=== PATIENT | male | born 1980 | race Caucasian/White ===

== ENCOUNTER 2020-04-08 22:17 | Emergency (ER) | payer BC ==
[~2020-04-08] VITALS: Ht 185.4 cm; Wt 129.9 kg
[~2020-04-08 22:17] MED LIST: NOHOMEMEDICATIONS; NORCO 5-325 TA1 EACH PO
[2020-04-08 23:28] LABS: HEMATOCRIT 41.7 % (42.0-52.0); MCH 28.6 pg (26.0-34.0); MCHC 33.6 g/dL (28.0-37.0); MPV 6.7 fl. (7.2-11.1); RBC 4.9 mil/uL (4.50-6.00); RDW-CV 13.7 % (10.5-14.5); WBC 11.9 thou/uL (4.0-11.0)
[2020-04-08 23:39] LABS: CALCIUM 8.8 mg/dL (8.5-10.1); CREATININE 0.9 mg/dL (0.6-1.3)
[2020-04-08 23:43] LABS: ALBUMIN 3.4 g/dL (3.4-5.0); TOTAL BILIRUBIN 0.2 mg/dL (<0.1-1.0); TOTAL PROTEIN 7.7 g/dL (6.4-8.2)
[2020-04-09] MEDS ORDERED: CYCLOBENZAPRINE5 MG PO (00:33)
[2020-04-09] MEDS ORDERED: MOBIC15 MG PO (00:33)
[2020-04-09 00:49] VITALS: BP 122/74
--- NOTE | 2020-04-10 17:01 | EKG ---
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 : 1980 Requested By: Shilpi Augustin Order Number: [id number] MD: Lopez Thomas Measurements Intervals [place] Rate: 78 P: 30 AL: 146 QRS: -13 QRSD: 92 T: 19 QT: 361 QTc: 412 Interpretive Statements Sinus rhythm Abnormal R-wave progression, early transition Left ventricular hypertrophy Baseline wander in lead(s) V2 No previous ECG available for comparison Electronically Signed On 04-10-2020 17:01:41 [employer] CALENDER OPERATOR by Lopez Thomas [email or web address] <ELECTRONICALLY SIGNED> By: Lopez Thomas MD, [facility] 04/10/20 1701 2230 2230 Lopez Thomas MD, [facility] /EPI
== END 2020-04-09 00:49 | disposition home or self-care (01) ==
LOC: M.ERS 22:17
PROVIDERS: Personal Emergency Response Attendant
DX: S20.219A Contusion of unspecified front wall of thorax, initial encounter (principal); Z88.0 Allergy status to penicillin; V49.69XA Unspecified car occupant injured in collision with other motor vehicles in traffic accident, initial encounter; Y93.89 Activity, other specified; Y92.89 Other specified places as the place of occurrence of the external cause; Y99.8 Other external cause status